=== PATIENT | female | born 1950 | race Caucasian/White ===

== ENCOUNTER → 2020-01-19 10:15 | Outpatient (CLI) | payer MEDICARE, BC, SELFPAY ==
--- NOTE | ~2020-01-19 | DEXA_ITS ---
Bone Density Report Name: Lucila Boland Age: 69 Sex: Female Ethnicity: White Date of : 1950 Indication: postmenopausal osteoporosis; monitoring treatment; parental hip fracture; Referring Provider: WU GELLER Study: Bone densitometry was performed. Exam Date: January 19, 2020 Accession number: [id number] Bone Density: Region BMD T-score Z-score Classification AP Spine (L1-L4) 0.711 -3.1 -0.9 Osteoporosis Femoral Neck (Left) 0.616 -2.1 -0.3 Osteopenia Total Hip (Left) 0.718 -1.8 -0.3 Osteopenia Femoral Neck (Right) 0.656 -1.7 0.1 Osteopenia Total Hip (Right) 0.747 -1.6 -0.1 Osteopenia Total Hip Mean 0.733 -1.7 -0.2 Osteopenia World Health Organization criteria for BMD impression classify patients as: Normal (T-score at or above -1.0), Osteopenia (T-score between -1.0 and -2.5), or Osteoporosis (T-score at or below -2.5). 10-year Fracture Risk: FRAX not reported because: Some T-score for Spine Total or Hip Total or Femoral Neck at or below -2.5 Treated for osteoporosis Previous Exams: Region Exam Age BMD T-score BMD Change BMD Change Date g/cm2 vs Baseline vs Previous AP Spine(L1-L4) 01/19/2020 69 0.711 -3.1 0.014 0.014 11/21/2016 66 0.698 -3.2 Total Hip(Left) 01/19/2020 69 0.718 -1.8 -0.022 -0.022 11/21/2016 66 0.741 -1.7 Total Hip(Right) 01/19/2020 69 0.747 -1.6 -0.019 -0.019 11/21/2016 66 0.766 -1.4 *Denotes significance at 95% confidence level, LSC for AP Spine = 0.022 g/cm2, LSC for Total Hip = 0.027 g/cm2 Clinical Information Provided by Patient: Parent has had a hip fracture Is being treated for osteoporosis Has used the following medications: HRT (i.e. estrogen/hormone therapy), Vitamin D Patient maximum height was 68 Menopause Age: 52 No regular weight bearing exercise Drinks caffeinated beverages Onset of menses at age 12 Number of children 3 Impression: The patient has osteoporosis, based on the Total Spine T-score. The patient has risk factors, including: parental hip fracture. No significant bone loss was observed. Discussion: PATIENT UNDER TREATMENT WITH NO SIGNIFICANT BMD LOSS SINCE LAST EXAM. In an untreated patient, BMD typically declines with age. A lack of decline or gain is usually a sign that treatment is efficacious and fracture risk is reduced. It is important to ask patients whether they are taking their medications and to encoura
--- NOTE | ~2020-01-19 | MM_ITS ---
EXAMINATION: MM screening [facility] BI w emigdio HISTORY: Screening mammogram TECHNIQUE: Craniocaudal and mediolateral oblique 3-D tomosynthesis images were obtained and synthetic 2-D images were generated. CAD analysis was submitted and interpreted. COMPARISON: Comparison to multiple prior studies sequentially, with oldest reviewed study dated 10/2014. BREAST PARENCHYMAL COMPOSITION: There are scattered areas of fibroglandular density. FINDINGS: There is no evidence of suspicious mass, calcification, or architectural distortion to sugg est malignancy in either breast. There has been no suspicious interval change. IMPRESSION: 1. No mammographic evidence of malignancy. 2. Recommend routine screening mammography in one year. BI-RADS Category 1: Negative Reviewed, dictated and finalized at location A.
== END ==
PROVIDERS: PCP Family Medicine; Visit Provider Family Medicine
DX: Z12.31 Encounter for screening mammogram for malignant neoplasm of breast (principal); Z78.0 Asymptomatic menopausal state; M85.89 Other specified disorders of bone density and structure, multiple sites; M81.0 Age-related osteoporosis without current pathological fracture
CPT/HCPCS: 77063; 77067; 77080

== ENCOUNTER → 2020-12-16 09:27 | Outpatient (CLI) | payer MEDICARE, BC, SELFPAY ==
--- NOTE | ~2020-12-16 | XR_ITS ---
EXAMINATION: XR lumbar spine min 4V DATE: 12/16/2020 09:41 INDICATION: Low back pain TECHNIQUE: Anteroposterior, lateral, and bilateral oblique views of the lumbar spine, and cone-down l ateral view of the lumbosacral junction were obtained. COMPARISON: CT, 07/10/2011 FINDINGS: There is no fracture, dislocation, or subluxation. The vertebral body heights are maintaine d. There is mild loss of intervertebral disc space height at L2-3. Small degenerative osteophytes pro ject from the anterior endplates of multiple vertebral bodies. There is mild facet osteoarthritis of the lower lumbar spine. A large volume of colonic stool is present. Cholecystectomy clips are noted i n the right upper quadrant. IMPRESSION: 1. Mild lumbar spondylosis without acute findings or significant interval change. Reviewed, dictated and finalized at location B. IMPRESSION: 1. Mild lumbar spondylosis without acute findings or significant interval mayur higgins
== END ==
PROVIDERS: PCP Family Medicine; Visit Provider Family Medicine
DX: M47.816 Spondylosis without myelopathy or radiculopathy, lumbar region (principal)
CPT/HCPCS: 72110

== ENCOUNTER 2021-03-15 10:45 | Outpatient (RCR) | payer MEDICARE, BC, SELFPAY ==
--- NOTE | 2021-02-22 09:35 | PTOPEVAL ---
PHYSICAL THERAPY EVALUATION AND PLAN OF CARE Thank you for referring Lucila Boland to [facility].? The patient is scheduled to be seen for therapy? follow up in 3 weeks. Please review, sign, date and return this plan of care JESICA. I agree with and certify that the following plan of care is medically necessary. Referring Physician Date Attending Provider: Radha Martinez MD Evaluation Diagnosis bilateral foot numbness Onset September 2020 Subjective Information Lucila is here today with c/o Query Text:As Reported By Patient/ bilateral foot numbness, left Family worse than right. She describes her feet as tingling feeling. 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 Has occasional back pain when standing or bending over too long. Does not as this time alter her lifestyle. Pain Score Pain Score 0: Self Report Cervical and Lumbar ROM Lumbar ROM Lumbar Flexion (0-90) 50 Query Text:Active in Degrees Lumbar Flexion Active Mid Grace Query Text:Hands to: Lumbar Extension (0-40) 15 Query Text:Active in Degrees Lateral Rotation Right (0-45) 40 Query Text:Active in Degrees Lateral Rotation Left (0-45) 40 Query Text:Active in Degrees Lower Extremity Muscle Strength Testing Hip Strength Right Hip Flexion Strength 4 Good Hip Extension Strength 3 Fair Hip Abduction Strength 3+ Fair + Left Hip Flexion Strength 4+ Good + Hip Extension Strength 4- Good - Hip Abduction Strength 4- Good - Knee Strength Bilateral Knee Flexion Strength 4+ Good + Knee Extension Strength 4+ Good + Muscle Length Testing Muscle Length Testing Avinash Test Shortened Muscles Short (R) Rectus Femoris,Short (L) Rectus Femoris Piriformis w/Hip Flexion >90 Degrees (L) Moderate Tightness,(R) Severe Tightness Oh's Test Hip Muscle Length (L) Mild Tightness,(R) Moderate Tightness Left Hamstring Length -40 Query Text:(90 - 90 Position) Right Hamstring Length -50 Query Text:(90 - 90 Position) Palpation Assessment Palpation Palpation very good tissue quality left paraspinals and QL, right paraspinals and QL mild to moderate tightness to palpation Dermatomes General Dermatome Bilateral General Screen All Lumbar Intact Reflexes Reflexes Loc
--- NOTE | 2021-03-15 11:02 | PTOPEVAL ---
PHYSICAL THERAPY DISCHARGE NOTE Thank you for referring Lucila Boland to [facility].? Please review, sign, date and return this plan of care JESICA. I agree with and certify that the following plan of care is medically necessary. Referring Physician Date Attending Provider: Radha Martinez MD Discharge Diagnosis bilateral foot numbness Onset September 2020 Subjective Information States she has been doing her Query Text:As Reported By Patient/ exercises. Reports that she Family sees how they are good for her general health and wellbeing, but they are not changing her main complaint of foot numbness. Pain Score Pain Score 0: Self Report Lower Extremity Muscle Strength Testing Hip Strength Right Hip Flexion Strength 5 Normal Hip Extension Strength 4 Good Hip Abduction Strength 4 Good Left Hip Flexion Strength 5 Normal Hip Extension Strength 4+ Good + Hip Abduction Strength 4+ Good + Knee Strength Bilateral Knee Flexion Strength 5 Normal Knee Extension Strength 5 Normal Muscle Length Testing Muscle Length Testing Piriformis w/Hip Flexion >90 Degrees (R) Moderate Tightness,(L) Moderate Tightness Oh's Test Hip Muscle Length (R) Mild Tightness,(L) Mild Tightness Left Hamstring Length -40 Query Text:(90 - 90 Position) Right Hamstring Length -40 Query Text:(90 - 90 Position) General Exercise General Exercises Side Bilateral Exercise Location LE Exercise Type Active,Resistive,Stretching Exercise Description -supine sciatic nerve glides Query Text:Record Sets, Reps, -sitting hamstring stretch Resistance, and Position [id number] -sitting piriformis stretch [id number] -resisted clamshells green band -resisted side stepping green band -resisted marches green band -unilateral bridge each side Rehab Teaching Rehab Teaching Teaching Topic Rehab Teaching Topic Components Anatomy/Physiology,Diagnosis, Home Program As Pertains To Safety,Technique,Therapy Prognosis Recipient Patient Learning Preferences Demonstration,Discussion Barriers to Learning None Readi
== END 2021-03-16 10:26 | disposition home or self-care (01) ==
LOC: ANHPT 10:45
PROVIDERS: PCP Family Medicine; Visit Provider Family Medicine
DX: M54.16 Radiculopathy, lumbar region (principal)
CPT/HCPCS: 97110; 97161

== ENCOUNTER → 2021-03-22 12:16 | Outpatient (CLI) | payer MEDICARE, BC, SELFPAY ==
--- NOTE | ~2021-03-22 | MM_ITS ---
EXAMINATION: MM screening josh BI w emigdio HISTORY: Screening TECHNIQUE: Craniocaudal and mediolateral oblique 3-D tomosynthesis images were obtained and synthetic 2-D images were generated. CAD analysis was submitted and interpreted. COMPARISON: Comparison to multiple prior studies sequentially, with oldest reviewed study dated 01/15. BREAST PARENCHYMAL COMPOSITION: There are scattered areas of fibroglandular density. FINDINGS: There are developing asymmetries in the central/subareolar location of the left breast. The right breast is stable without evidence for malignancy. IMPRESSION: 1. Developing left breast asymmetries. 2. Additional mammographic views and possible breast ultrasound are recommended. BI-RADS Category 0: Incomplete: Needs additional imaging evaluation. Reviewed, dictated and finalized at location D. IMPRESSION: 1. Developing left breast asymmetries. 2. Additional mammographic views and possible breast ultrasound are recommended . BI-RADS Category 0: Incomplete: Needs additional imaging evaluation.
== END ==
PROVIDERS: PCP Family Medicine; Visit Provider Family Medicine
DX: Z12.31 Encounter for screening mammogram for malignant neoplasm of breast (principal); R92.8 Other abnormal and inconclusive findings on diagnostic imaging of breast
CPT/HCPCS: 77063; 77067

== ENCOUNTER → 2021-04-18 09:06 | Outpatient (CLI) | payer MEDICARE, BC, SELFPAY ==
--- NOTE | ~2021-04-18 | MMUS_ITS ---
EXAMINATION: MM diagnostic josh LT w emigdio, US breast LT complete HISTORY: Follow-up left breast asymmetries TECHNIQUE: Additional 3-D tomosynthesis images of the left breast were performed and synthetic 2-D im ages were generated. CAD analysis was submitted and interpreted. High resolution complete left breast ultrasound was performed. COMPARISON: Comparison to multiple prior studies sequentially, with oldest reviewed study dated 12/2015. BREAST PARENCHYMAL COMPOSITION: Breast composed of scattered areas of fibroglandular density. FINDINGS: MAMMOGRAPHIC FINDINGS: There is a subareolar mass which is unchanged from prior studies measuring approximately 1.6 cm. Ther e is a deeper subareolar mass in the left breast with circumscribed margins measuring approximately 1 .4 cm. There are no suspicious calcifications or architectural distortion. ULTRASOUND: Left breast ultrasound: There is a history of cysts in the subareolar location of the left breast, la rgest measuring approximately 2 cm. At 2:00, 3 cm from the nipple, there is a 1.4 cm cyst. At 11:00, 3 cm from the nipple, there is a complicated cyst measuring 5 mm. At 11:00, 2 cm from the nipple, the re is a slightly irregular shaped hypoechoic mass measuring 5 mm with possible echogenic hilum, possi alicja intramammary lymph node or complicated cysts. IMPRESSION: 1. Probable benign left breast masses at 11:00. 2. Recommend 6 month follow-up left breast ultrasound and mammogram BI-RADS category 3, probably benign findings. Reviewed, dictated and finalized at location A. IMPRESSION: 1. Probable benign left breast masses at 11:00. 2. Recommend 6 month follow-up left breast ultrasound and mammogram BI-RADS category 3, probably benign findings.
== END ==
PROVIDERS: PCP Family Medicine; Visit Provider Family Medicine
DX: N63.22 Unspecified lump in the left breast, upper inner quadrant (principal)
CPT/HCPCS: 76641; 77061; 77065; G0279

== ENCOUNTER 2021-05-02 09:23 | Outpatient (CLI) | payer MEDICARE, BC, SELFPAY ==
--- NOTE | 2021-05-02 12:00 | NEURO_ITS ---
Impression: # Complains of numbness of feet and lower extremities. # Normal nerve conduction study including peroneal and posterior tibial nerves. # No Tarsal Tunnel Syndrome. # Normal needle/EMG exam. # Clinical correlation recommended; Possibility of central involvement cannot be ruled out. Nerve Conduction Studies Anti Sensory Summary Table Stim Site NR Peak (ms) P-T Amp (?V) Site1 Site2 Delta-P (ms) Dist (cm) Quintin (m/s) Left Sup Fibular Anti Sensory (Ant Lat Mall) 14 cm 4.0 24.6 14 cm Ant Lat Mall 4.0 16.0 40 Right Sup Fibular Anti Sensory (Ant Lat Mall) 14 cm 4.0 24.3 14 cm Ant Lat Mall 4.0 16.0 40 Left Sural Anti Sensory (Lat Mall) Calf 3.7 40.2 Calf Lat Mall 3.7 16.0 43 Right Sural Anti Sensory (Lat Mall) Calf 3.7 21.0 Calf Lat Mall 3.7 16.0 43 Motor Summary Table Stim Site NR Onset (ms) O-P Amp (mV) Site1 Site2 Delta-0 (ms) Dist (cm) Quintin (m/s) Left Lateral Plantar Motor (ADM) Med Mall 5.0 1.7 Right Lateral Plantar Motor (ADM) Med Mall 4.9 1.3 Left Peroneal Motor (Vastus Med) Ankle 4.9 2.0 Popit Ankle 9.0 39.0 43 Popit 13.9 1.6 Right Peroneal Motor (Vastus Med) Ankle 4.6 1.6 Popit Ankle 9.2 40.0 43 Popit 13.8 1.1 Left Tibial Motor Run #1 (Abd Grewal Brev) Ankle 4.6 4.3 Knee Ankle 10.6 42.0 40 Knee 15.2 3.0 Right Tibial Motor (Abd Grewal Brev) Ankle 4.8 6.0 Knee Ankle 11.0 44.0 40 Knee 15.8 2.8 F Wave Studies NR F-Lat (ms) L-R F-Lat (ms) Left Peroneal (Mrkrs) (EDB) 54.03 0.23 Right Peroneal (Mrkrs) (EDB) 53.80 0.23 Left Tibial (Mrkrs) (Abd Hallucis) 53.50 0.67 Right Tibial (Mrkrs) (Abd Hallucis) 54.16 0.67 EMG Side Muscle Nerve Root Ins Act Fibs Amp Dur Recrt Comment Right AntTibialis Dp Br Fibular L4-5 Nml Nml Nml Nml Nml Right Gastroc Tibial S1-2 Nml Nml Nml Nml Nml Right Fibularis Long Sup Br Fibular L5-S1 Nml Nml Nml Nml Nml Right Flex Dig Long Tibial L5-S2 Nml Nml Nml Nml Nml Right Ext Dig Brev Dp Br Fibular L5, S1 Nml Nml Nml Nml Nml Left AntTibialis Dp Br Fibular L4-5 Nml Nml Nml Nml Nml Left Gastroc Tibial S1-2 Nml Nml Nml Nml Nml Left Fibularis Long Sup Br Fibular L5-S1 Nml Nml Nml Nml Nml Left Flex Dig Long Tibial L5-S2 Nml Nml Nml Nml Nml Left Ext Dig Brev Dp Br Fibular L5, S1 Nml Nml Nml Nml Nml Right Ext Dig Long Dp Br Fibular L5-S1 Nml Nml Nml Nml Nml Left Ext Dig Long Dp Br Fibular L5-S1 Nml Nml Nml Nml Nml MTDD
== END 2021-05-02 09:24 | disposition home or self-care (01) ==
LOC: ANHNEURO 09:24
PROVIDERS: PCP Family Medicine; Visit Provider Family Medicine
DX: R20.0 Anesthesia of skin (principal); M54.16 Radiculopathy, lumbar region
CPT/HCPCS: 95886; 95911

== ENCOUNTER 2021-06-13 07:35 | Outpatient (CLI) | payer MEDICARE, BC, SELFPAY ==
--- NOTE | ~2021-06-13 | MR_ITS ---
EXAMINATION: MR lumbar spine wo con EXAM DATE: 06/13/2021 09:14 INDICATION: M54.16 - Radiculopathy, lumbar region . Bilateral hip and leg pain. TECHNIQUE: Multi-sequential, multiplanar MR images of the lumbar spine were obtained without contrast . Sagittal T1, T2, T2 fat saturation images. Axial T2 weighted images. There is no prior study for comparison. FINDINGS: Mild diffuse lumbar disc disease. 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 There is 2 mm anterolisthesis L5 on S1. No spondylolysis. There are no suspicious marrow signal abnormalities. Par aspinal soft tissue is unremarkable. The conus medullaris terminates at the T12-L1 level and has nor mal signal intensity and morphology. Level by level evaluation: T12-L1: Disc does not extend beyond the endplate margin. Facet arthropathy: None. Neural foraminal stenosis: No stenosis. Central canal stenosis: No stenosis. L1-L2: There is a mild diffuse disc bulge. Facet arthropathy: Mild. Neural foraminal stenosis: No stenosis. Central canal stenosis: No stenosis. L2-L3: There is a mild to moderate diffuse disc bulge. Facet arthropathy: Mild to moderate. Neural foraminal stenosis: No stenosis. Central canal stenosis: No stenosis. L3-L4: There is a mild diffuse disc bulge. Facet arthropathy: Mild. Neural foraminal stenosis: No stenosis. Central canal stenosis: No stenosis. L4-L5: There is a mild to moderate diffuse disc bulge. Facet arthropathy: Mild to moderate. Neural foraminal stenosis: Minimal left. Central canal stenosis: Mild. L5-S1: There is a mild to moderate diffuse disc bulge. Facet arthropathy: Moderate right, mild left. Neural foraminal stenosis: Minimal. Central canal stenosis: Mild. IMPRESSION: Mild to moderate lumbar spondylosis. Reviewed, dictated and finalized at location A. 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
== END 2021-06-13 07:36 | disposition home or self-care (01) ==
PROVIDERS: PCP Family Medicine; Visit Provider Family Medicine
DX: M47.27 Other spondylosis with radiculopathy, lumbosacral region (principal); M48.07 Spinal stenosis, lumbosacral region; R29.898 Other symptoms and signs involving the musculoskeletal system
CPT/HCPCS: 72148

== ENCOUNTER → 2021-10-16 08:45 | Outpatient (CLI) | payer MEDICARE, BC, SELFPAY ==
--- NOTE | ~2021-10-16 | MMUS_ITS ---
EXAMINATION: MM diagnostic josh LT w emigdio, US breast LT limited HISTORY: Six-month follow-up for probably benign left breast mass TECHNIQUE: Craniocaudal, mediolateral, and mediolateral oblique 3-D tomosynthesis images of the left breast were performed and synthetic 2-D images were generated. CAD analysis was submitted and interpr eted. High resolution limited left breast ultrasound was performed. COMPARISON: 04/18/2021, 03/22/2021, 01/19/2020, 03/06/2018 BREAST PARENCHYMAL COMPOSITION: There are scattered areas of fibroglandular density. FINDINGS: MAMMOGRAPHIC FINDINGS: There is a stable 1.7 cm equal density, circumscribed, subareolar mass of the left breast. No suspici ous calcification or architectural distortion are identified. ULTRASOUND: There is a 1.9 cm cyst in the subareolar aspect of the breast. Smaller adjacent cysts are also noted which measure 9 mm and 4 mm. There is a 1.4 cm cyst at the 2:00 location 3 cm from the nipple. There is a stable 4 mm x 3 mm oval, hypoechoic mass with no posterior features or internal vascularity at t he 11:00 location 5 cm from the nipple. A stable 5 mm x 3 mm mass with similar sonographic features i s present at the 11:00 location 3 cm from the nipple. There is a stable 5 mm x 3 mm hypoechoic mass w ith possible annular margins, no posterior features, and no internal vascularity at the 11:00 locatio n 2 cm from the nipple. IMPRESSION: 1. Probably benign left breast masses. 2. Recommend 6 month follow-up left diagnostic mammogram and ultrasound. BI-RADS category 3, probably benign findings. Reviewed, dictated and finalized at location A. IMPRESSION: 1. Probably benign left breast masses. 2. Recommend 6 month follow-up left diagnostic mammogram and ultrasound. BI-RADS category 3, probably benign findings.
== END ==
PROVIDERS: PCP Family Medicine; Visit Provider Family Medicine
DX: R92.8 Other abnormal and inconclusive findings on diagnostic imaging of breast (principal); N60.02 Solitary cyst of left breast
CPT/HCPCS: 76642; 77061; 77065; G0279

== ENCOUNTER → 2022-05-22 08:33 | Outpatient (CLI) | payer MEDICARE, BC, SELFPAY ==
--- NOTE | ~2022-05-22 | MMUS_ITS ---
EXAMINATION: MM diagnostic josh BI w emigdio, US breast LT limited HISTORY: Follow-up left breast mass TECHNIQUE: Additional 3-D tomosynthesis images of the left breast were performed and synthetic 2-D im ages were generated. CAD analysis was submitted and interpreted. High resolution Limited left breast ultrasound was performed. COMPARISON: Comparison to multiple prior studies sequentially, with oldest reviewed study dated 02/11. BREAST PARENCHYMAL COMPOSITION: Breast composed of scattered areas of fibroglandular density FINDINGS: MAMMOGRAPHIC FINDINGS: The right breast is stable without evidence for malignancy. There is a subareolar mass of the left br east which is not significantly changed from prior examinations. No suspicious calcifications or arch itectural distortion in either breast. ULTRASOUND: Limited left breast ultrasound: There is a cluster of cyst in the subareolar location of the left tamia ast the largest measuring 1.7 cm. At 2:00, 3 cm from the nipple there is a 9 mm cyst which is unchang ed. At 11:00, 2 cm from the nipple there is an oval hypoechoic mass measuring 5 mm without posterior features or internal vascularity, slightly smaller than on prior examination. At 11:00, 3 cm from the nipple, there is a 5 mm cyst, unchanged. IMPRESSION: 1. Stable likely benign left breast masses. 2. Recommend 6 month follow-up diagnostic left mammogram and ultrasound. BI-RADS category 3, probably benign findings. Reviewed, dictated and finalized at location A. IMPRESSION: 1. Stable likely benign left breast masses. 2. Recommend 6 month follow-up diagnostic left mammogram and ultrasound. BI-RADS category 3, probably benign findings.
--- NOTE | ~2022-05-22 | DEXA_ITS ---
Bone Density Report Name: YUNG URIBE Age: 71 Sex: Female Ethnicity: White Date of : 1950 Indication: postmenopausal osteoporosis; monitoring treatment; parental hip fracture; height loss; Referring Provider: Coty Wilson Study: Bone densitometry was performed. Exam Date: May 22, 2022 Accession number: [id number] Bone Density: Region BMD T-score Z-score Classification AP Spine (L1-L4) 0.691 -3.2 -1.0 Osteoporosis Femoral Neck (Left) 0.590 -2.3 -0.4 Osteopenia Total Hip (Left) 0.720 -1.8 -0.2 Osteopenia Femoral Neck (Right) 0.637 -1.9 0.0 Osteopenia Total Hip (Right) 0.738 -1.7 0.0 Osteopenia Total Hip Mean 0.729 -1.8 -0.1 Osteopenia World Health Organization criteria for BMD impression classify patients as: Normal (T-score at or above -1.0), Osteopenia (T-score between -1.0 and -2.5), or Osteoporosis (T-score at or below -2.5). 10-year Fracture Risk: FRAX not reported because: Some T-score for Spine Total or Hip Total or Femoral Neck at or below -2.5 Treated for osteoporosis Previous Exams: Region Exam Age BMD T-score BMD Change BMD Change Date g/cm2 vs Baseline vs Previous AP Spine(L1-L4) 05/22/2022 71 0.691 -3.2 -0.006 -0.020 01/19/2020 69 0.711 -3.1 0.014 0.014 11/21/2016 66 0.698 -3.2 Total Hip(Left) 05/22/2022 71 0.720 -1.8 -0.021 0.002 01/19/2020 69 0.718 -1.8 -0.022 -0.022 11/21/2016 66 0.741 -1.7 Total Hip(Right) 05/22/2022 71 0.738 -1.7 -0.028* -0.009 01/19/2020 69 0.747 -1.6 -0.019 -0.019 11/21/2016 66 0.766 -1.4 *Denotes significance at 95% confidence level, LSC for AP Spine = 0.022 g/cm2, LSC for Total Hip = 0.027 g/cm2 Clinical Information Provided by Patient: Parent has had a hip fracture Is being treated for osteoporosis Has used the following medications: Vitamin D, RX injection 10/10 ?name Patient maximum height was 68 Menopause Age: 52 No regular weight bearing exercise Drinks caffeinated beverages Onset of menses at age 12 Number of children 3 Impression: The patient has osteoporosis, based on the Total Spine T-score. The patient has risk factors, including: parental hip fracture. No significant bone loss was observed. Discussion: PATIENT UNDER TREATMENT WITH NO SIGNIFICANT BMD LOSS SINCE LAST EXAM. In an untreated patient, BMD typically declines with age
== END ==
PROVIDERS: PCP Family Medicine; Visit Provider Physician Assistant
DX: Z78.0 Asymptomatic menopausal state (principal); R92.8 Other abnormal and inconclusive findings on diagnostic imaging of breast; M81.0 Age-related osteoporosis without current pathological fracture; M85.852 Other specified disorders of bone density and structure, left thigh; M85.851 Other specified disorders of bone density and structure, right thigh
CPT/HCPCS: 76642; 77062; 77066; 77080; G0279

== ENCOUNTER 2023-03-11 10:08 | Emergency (ER) | payer MEDICARE, BC, SELFPAY ==
--- NOTE | ~2023-03-11 | XR_ITS ---
EXAMINATION: XR knee LT 3V DATE: 03/11/2023 10:50 INDICATION: Left knee pain. Fall. TECHNIQUE: 3 views of left knee were obtained. COMPARISON: None. FINDINGS: There is a comminuted fracture of lateral tibial plateau with up to 2 mm depression of the articular surface. There is mild tricompartmental osteoarthritis. There is a large knee joint effusio n. IMPRESSION: 1. Split depression fracture of lateral tibial plateau. 2. Mild knee joint osteoarthritis. 3. Large knee joint effusion. Reviewed, dictated and finalized at location A.
--- NOTE | ~2023-03-11 | XR_ITS ---
EXAMINATION: XR tibia fibula LT 2V DATE: 03/11/2023 10:50 INDICATION: Left knee pain. Fall. TECHNIQUE: 2 views of left tibia and fibula on 3 radiographs were obtained. COMPARISON: None. FINDINGS: There is a split depression fracture of lateral tibial plateau. There is chronic heterotopi c ossification distal to lateral malleolus from old injury. The ankle joint space is normal. IMPRESSION: 1. Split depression fracture of lateral tibial plateau. Reviewed, dictated and finalized at location A.
--- NOTE | 2023-03-11 10:21 | ED.LOWEXIN ---
HPI - Extremity Injury (Lower) General Chief Complaint: Extremity Injury, Lower Stated Complaint: Injured Foot Time Seen by Provider: 03/11/23 10:21 Source: patient, RN notes reviewed and old records reviewed Mode of arrival: ambulatory Limitations: no limitations History of Present Illness HPI Narrative: 72 year old female presents to the [facility] with complaints of left knee pain. Patient states that she was walking downstairs, missed a stair to star knee and fell directly onto the lateral aspect of the left knee. Unable to bear weight. Significant swelling noted. Unable to completely straighten the knee. Patient denies hitting head. No loss of consciousness. Denies back or neck pain. Occurred just prior to arrival No treatment prior to arrival Onset (ago): hour(s) Related Data Home Medications Medication Instructions Recorded Confirmed vit C 250 mg-vit E 90 mg-zinc 40 1 tablet PO DAILY 11/17/21 03/11/23 mg-copper 1 [id number] capsule (PreserVision AREDS-2) Allergies Allergy/AdvReac Type Severity Reaction Status Date / Time benazepril Allergy Unknown cough Verified 11/27/22 10:49 amitriptyline AdvReac Contraindicated/ Verified 11/27/22 10:49 arrhythmia propranolol AdvReac sleep Verified 11/27/22 10:49 disruption/ horrible dreams Review of Systems Review of Systems: All systems reviewed & are unremarkable except as noted in HPI and below Constitutional: Constitutional: Reports no additional constitutional complaints Eyes: Eyes: Reports no additional eye complaints ENT: Reports system reviewed and no additional complaints, except as documented Cardiovascular: Cardiovascular: Reports no additional cardiovascular complaints, Denies chest pain and Denies dyspnea Respiratory: Respiratory: Reports no additional respiratory complaints, Denies chest congestion, Denies cough and Denies dyspnea Gastrointestinal: Gastrointestinal: Reports no additional gastrointestinal complaints, Denies abdominal pain, Denies nausea and Denies vomiting Musculoskeletal: Musculoskeletal: Reports as per HPI, Reports arthralgias (Left knee) and Reports joint swelling (Left knee) Integumentary/Breasts: Skin/Breast: Reports system reviewed and no additional complaints, except as docu Neurologic: Reports system reviewed and no additional complaints, except as documented Psychiatric: Psychiatric: Reports no additional psychiatric complaints Allergic/Immunologic: Allergic/Immunologic: Reports no additional allergic/immunologic complaints [facility] Past Medical History Medical History (Updated 03/11/23 @ 11:16 by Katty Ellis APRN) Hemorrhoids Trochanteric bursitis, unspecified hip Family History Family History Sibling Family history of cardiovascular disease Father Acute myocardial infarction Grandparent Cerebrovascular accident Mother Cerebrovascular accident Social History Social History Smoking status: Never smoker Alcohol intake: current Substance use: never Substance use type: does not use Lack of Transportation: No Lack of Food: Never True Current Housing: I Have Housing Concerned About Future Housing: No Difficulty Paying Gas/Electric Bills: No Difficulty Paying for Meds: No Currently Unemployed: No Education: Associate Degree Difficulty w/ Childcare or Family Care: No Spiritual care concerns: No Comments At the time of my signature, I reviewed and agree with the nursing past medical, surgical, social, and family history. There is no relevant family history pertinent to the patient complaint. Exam Const: General: cooperative, healthy appearing, comfortable, no acute distress, well developed, alert and well nourished Nutritional Appearance: well nourished Orientation/consciousness: patient oriented x3 Limitations: no limitations HENMT:
[2023-03-11 10:24] VITALS: BP 128/71; PULSE 70; RESP 16; TEMP 36.6; O2SAT 98
== END 2023-03-11 12:05 | disposition home or self-care (01) ==
PROVIDERS: Emergency Provider Nurse Practitioner; PCP Family Medicine
DX: S82.142A Displaced bicondylar fracture of left tibia, initial encounter for closed fracture (principal); W10.9XXA Fall (on) (from) unspecified stairs and steps, initial encounter
CPT/HCPCS: 73562; 73590; 99214; G0463; L1830

== ENCOUNTER 2023-06-17 11:00 | Outpatient (RCR) | payer MEDICARE, BC, SELFPAY ==
--- NOTE | 2023-04-22 16:40 | OPREHPOC ---
Outpatient Therapy Plan of Care This is a Multidisciplinary Plan of Care that may contain components documented by all disciplines (PT, OT, and ST.) PT Problem 1 PT Problem #1 Knowledge Deficit PT Goal 1 Goal Pt to be IND with issued HEP Target Visit 16 PT Problem 2 PT Problem #2 Pain PT Goal 1 Goal Pt to report knee pain no greater than 3/10 in the last week Target Visit 16 PT Goal 2 Goal Pt to report 75% improvement in overall symptoms Target Visit 16 PT Problem 3 PT Problem #3 Impaired Range of Motion PT Goal 1 Goal Pt to increase active knee flexion to 120 deg Target Visit 16 PT Goal 2 Goal Pt to increase knee extension ROM to 0 deg Target Visit 16 PT Problem 4 PT Problem #4 Impaired Strength PT Goal 1 Goal Pt to improve L quad strength to 4+/5 Target Visit 16 PT Goal 2 Goal Pt to improve L hip strength to 4/5 Target Visit 16 PT Problem 5 PT Problem #5 Impaired Gait PT Goal 1 Goal Pt to ambulate on level surface without substitutions when WB status allows Target Visit 16
--- NOTE | 2023-04-22 16:40 | PTOPEVAL1 ---
Assessment and note entered by Truman Lucero, PT, DPT Evaluation Information Assessment Status Evaluation Diagnosis L tibial plateau fx Onset 03/16 Subjective Information Pt states she fell on 03/16 and caused a fracture, on 03/26 this was surgically repaired and she has been non weight bearing since. She has to remain TTWB until her follow up appointment on 05/17. She has been a walker to get around her home. Pt like to cook, knit, and work around her home. Reported Pain Level Pain Score 0: Self Report Assessment PT Clinical Summary Lucila presents to therapy today for her initial evaluation following a L knee tibial plateau fracture on 03/16. She is currently TTWB. Today she demonstrates decreased active knee ROM, flexion is limited to 95 deg and extension to -18 deg. She demonstrates quad atrophy and weakness of her L hip globally. Skilled therapy services are indicated to improve ROM, strength, gait train when able, and to progress towards a return to baseline function. Plan of Care Interventions Electrical Stimulation,Gait Training,Hot Pack/Cold Pack,Manual Therapy,Neuro Re-education,Patient/ Caregiver Educati,Therapeutic Activities, Therapeutic Exercise PT Services Indicated Yes Treatment Frequency and 2x/wk for 16 visits Duration These treatments will address the objective and functional deficits as defined above. The patient will be advanced safely and appropriately in order for the patient to progress towards his/her prior level of function. Additional exercises will be introduced and as well as a comprehensive home exercise program upon discharge, if needed, ?to ensure carryover of functional gains achieved in the clinic. This treatment plan has been reviewed and agreement upon by the patient.
--- NOTE | 2023-05-21 13:48 | PTOPPROG ---
Assessment and note entered by Truman Lucero, PT, DPT Evaluation Information Assessment Status Progress Diagnosis L tibial plateau fx Onset 03/16 Subjective Information Pt states overall she is doing well. She has progressed in the last week to WBAT and has been ambulating with a standard walker. She inquired about stairs and ambulation with a wheeled walker. Assessment PT Clinical Summary Lucila presents to therapy today for her progress report following a L knee tibial plateau fracture on 03/16. Pts active ROM is currently -8 deg to 118 deg, and she demonstrates improved quad strength. She has just began gait training with a wheeled walker. She continues to have decreased ambulation and stair navigation ability, strength, and functional mobility compared to her baseline. Continuation of skilled therapy services are indicated to improve ROM, strength, gait training, and to return to PLOF. Plan of Care Interventions Electrical Stimulation,Gait Training,Hot Pack/Cold Pack,Manual Therapy,Neuro Re-education,Patient/ Caregiver Educati,Therapeutic Activities, Therapeutic Exercise PT Services Indicated Yes Treatment Frequency and 2x/wk for 8 visits Duration These treatments will address the objective and functional deficits as defined above. The patient will be advanced safely and appropriately in order for the patient to progress towards his/her prior level of function. Additional exercises will be introduced and as well as a comprehensive home exercise program upon discharge, if needed, ?to ensure carryover of functional gains achieved in the clinic. This treatment plan has been reviewed and agreement upon by the patient.
--- NOTE | 2023-06-17 13:32 | PTOPDC ---
Assessment and note entered by Truman Lucero, PT, DPT Evaluation Information Assessment Status Discharge Diagnosis L tibial plateau fx Onset 03/16 Subjective Information Pt states her knee is a little stiff most days, but she is not having any pain. She states she feels like the distance she can walk still limited . Pt states last week she walked around the grocery store and thinks she overdid it. Reported Pain Level Pain Score 0: Self Report Assessment PT Clinical Summary Lucila presents to therapy today for her progress report following 17 visits of skilled therapy to treat the deficits of a L knee tibial plateau fracture on 03/16. Pts active ROM is currently -5 deg to 125 deg. She is currently ambulating household distances without an AD and community distances with a cane. She has met all of her therapy goals and this time and will be discharged . Plan of Care PT Services Indicated No
== END 2023-06-17 14:51 | disposition home or self-care (01) ==
LOC: ANHGOSHPT 11:00
PROVIDERS: PCP Family Medicine
DX: S82.142D Displaced bicondylar fracture of left tibia, subsequent encounter for closed fracture with routine healing (principal)
CPT/HCPCS: 97014; 97110; 97116; 97140; 97161; 97530; 97750; G0283

== ENCOUNTER 2023-10-21 09:46 | Outpatient (CLI) | payer MEDICARE, BC, SELFPAY ==
--- NOTE | ~2023-10-21 | CT_ITS ---
Noncontrast CT scan of the lumbar spine CLINICAL HISTORY: Inflammatory spondyloarthropathy TECHNIQUE: Axial noncontrast imaging of the lumbar spine was performed. Sagittal and coronal reformat sienna images were constructed. Dose reduction technique was used on this scan by utilizing automated ex posure control and iterative reconstruction technique. The dose-length product (DLP) was 605.71 mGy-c m. FINDINGS: There is no fracture or subluxation of the lumbar spine. Vertebral bodies maintain normal h eight and alignment. Intraosseous hemangioma of L3 noted. Intervertebral disc spaces are relatively w ell preserved throughout the lumbar spine. At L1-L2, there is minimal disc bulge. No spinal canal stenosis or definite neural foraminal narrowin g. At L2-L3, there is mild disc bulge. No spinal canal stenosis. There is mild left neural foraminal regine rowing. Right neural foramen preserved. At L3-L4, there is disc bulge and mild facet arthropathy. No alek central canal stenosis. Neural for kassie are preserved. At L4-L5, there is mild disc bulge with mild facet arthropathy. No alek central canal stenosis. Ther e is mild left neural foraminal narrowing. Right neural foramen preserved. At L5-S1, there is no disc bulge or herniation. No spinal canal stenosis or neural foraminal narrowin g. Paravertebral soft tissues are unremarkable. Impression: Mild degenerative spondylosis, as above. Reviewed, dictated and finalized at [facility]. Impression: Mild degenerative spondylosis, as above.
== END 2023-10-21 09:47 ==
PROVIDERS: PCP Family Medicine; Visit Provider Family Medicine
DX: M46.86 Other specified inflammatory spondylopathies, lumbar region (principal); M47.896 Other spondylosis, lumbar region
CPT/HCPCS: 72131

== ENCOUNTER 2023-11-18 09:25 | Outpatient (CLI) | payer MEDICARE, BC, SELFPAY ==
--- NOTE | ~2023-11-18 | MR_ITS ---
EXAMINATION: MR lumbar spine wo con DATE: 11/18/2023 09:58 INDICATION: Lumbar stenosis. Low back pain. TECHNIQUE: Magnetic resonance imaging (MRI) of the lumbar spine was performed without intravenous con trast. COMPARISON: Lumbar spine MRI 06/13/2021 FINDINGS: Bone alignment is normal. Vertebral body heights are normal. There is mildly decreased disc height at L2-L3. The distal spinal cord signal intensity is normal. The conus medullaris is at T12-L 1. The following disc levels are specifically discussed: L1-L2: The disc is bulging. There is mild bilateral facet joint osteoarthritis. There is mild bilater al neural foraminal stenosis. There is mild central canal stenosis. L2-L3: The disc is bulging is an annular fissure. There is mild bilateral facet joint osteoarthritis. There is mild bilateral neural foraminal stenosis. There is mild central canal stenosis. L3-L4: The disc is bulging. There is moderate bilateral facet joint osteoarthritis. There is mild truong ateral neural foraminal stenosis. There is mild central canal stenosis. L4-L5: The disc is bulging and has an annular fissure. There is severe bilateral facet joint osteoart hritis. There is mild bilateral neural foraminal stenosis. There is mild central canal stenosis. L5-S1: The disc is bulging. There is severe bilateral facet joint osteoarthritis. There is mild bilat eral neural foraminal stenosis. There is no central canal stenosis. IMPRESSION: 1. Mild lumbar spondylosis, stable from 06/13/2021. Reviewed, dictated and finalized at location A.
== END 2023-11-18 09:26 ==
PROVIDERS: PCP Family Medicine
DX: M48.062 Spinal stenosis, lumbar region with neurogenic claudication (principal); M47.896 Other spondylosis, lumbar region
CPT/HCPCS: 72148

== ENCOUNTER 2023-12-18 13:57 | Outpatient (CLI) | payer MEDICARE, BC, SELFPAY ==
--- NOTE | ~2023-12-18 | US_ITS ---
US arterial ankle brachial ind INDICATION: Referral vascular disease TECHNIQUE: Segmental pressures and plethysmographic and Doppler waveforms of the brachial and lower e xtremity arteries were obtained. COMPARISON: None. FINDINGS: Right and left brachial artery pressures of 128 mm Hg and 130 mm Hg, respectively, are concordant (no rmal difference <= 30 mmHg). The right ankle-brachial index (YU) is 1.12 (normal >= 0.9-1.0). The right great toe-brachial index (TBI) is 0.62 (normal >= 0.60). The left YU is 1.2. The left TBI is 0.71. IMPRESSION: 1. Normal bilateral ankle-brachial indices. Reviewed, dictated and finalized at location B.
== END 2023-12-18 13:58 | disposition home or self-care (01) ==
LOC: ANHIMG 13:57
PROVIDERS: PCP Family Medicine; Visit Provider Family Medicine
DX: I73.9 Peripheral vascular disease, unspecified (principal); M79.604 Pain in right leg; M79.605 Pain in left leg
CPT/HCPCS: 93922

== ENCOUNTER 2024-07-28 13:44 | Outpatient (CLI) | payer MEDICARE, BC, SELFPAY ==
--- NOTE | ~2024-07-28 | DEXA_ITS ---
Bone Density Report Name: YUNG URIBE Age: 74 Sex: Female Ethnicity: White Date of : 1950 Indication: postmenopausal; screening for osteoporosis; parental hip fracture; Referring Provider: WU GELLER Study: Bone densitometry was performed. Exam Date: July 28, 2024 Accession number: [id number] Bone Density: Region BMD T-score Z-score Classification AP Spine(L1-L4) 0.718 -3.0 -0.6 Osteoporosis Femoral Neck (Left) 0.595 -2.3 -0.2 Osteopenia Total Hip (Left) 0.733 -1.7 0.1 Osteopenia Femoral Neck (Right) 0.640 -1.9 0.2 Osteopenia Total Hip (Right) 0.769 -1.4 0.4 Osteopenia Femoral Neck Mean 0.617 -2.1 0.0 Osteopenia Total Hip Mean 0.751 -1.6 0.2 Osteopenia World Health Organization criteria for BMD impression classify patients as: Normal (T-score at or above -1.0), Osteopenia (T-score between -1.0 and -2.5), or Osteoporosis (T-score at or below -2.5). 10-year Fracture Risk: FRAX not reported because: Some T-score for Spine Total or Hip Total or Femoral Neck at or below -2.5 Treated for osteoporosis Clinical Information Provided by Patient: Parent has had a hip fracture Is being treated for osteoporosis Has used the following medications: Reclast (i.e. zoledronate), Vitamin D Patient maximum height was 68 Menopause Age: 52 No regular weight bearing exercise Drinks caffeinated beverages Onset of menses at age 12 Number of children 0 Impression: The patient has osteoporosis, based on the Total Spine T-score. The patient has risk factors, including: parental hip fracture. Discussion: It is important to ask patients whether they are taking their medications and to encourage continued and appropriate compliance with their osteoporosis therapies to reduce fracture risk. It is also important to review their risk factors and encourage appropriate calcium and vitamin D intakes, exercise, fall prevention and other lifestyle measures. Follow-Up: Consider a repeat BMD and Vertebral Fracture Assessment (VFA) exam in 2 years or sooner if medically necessary, to reassess this patient's status. Reported by: MELY on 07/29/2024 7:06:00 AM. Reviewed, dictated and finalized at location A.
== END 2024-07-28 13:45 | disposition home or self-care (01) ==
LOC: CHSIMG 13:46
PROVIDERS: PCP Family Medicine; Visit Provider Family Medicine
DX: Z78.0 Asymptomatic menopausal state (principal); M85.89 Other specified disorders of bone density and structure, multiple sites; M81.0 Age-related osteoporosis without current pathological fracture
CPT/HCPCS: 77080

== ENCOUNTER 2024-08-17 08:46 | Outpatient (CLI) | payer MEDICARE, BC, SELFPAY ==
--- NOTE | ~2024-08-17 | XR_ITS ---
EXAMINATION: XR chest 2V 08/17/2024 09:00 INDICATION: Abnormal weight loss PROCEDURE: 2 view chest COMPARISON: 12/07/2015 FINDINGS: The lungs are clear. The cardiomediastinal silhouette is within normal limits. There are no pleural effusions. There is no pneumothorax suspected. IMPRESSION: 1: NO ACUTE CARDIOPULMONARY DISEASE. Reviewed, dictated and finalized at location A. 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
== END 2024-08-17 08:47 | disposition home or self-care (01) ==
LOC: MICIMG 08:48
PROVIDERS: PCP Family Medicine; Visit Provider Family Medicine
DX: R53.83 Other fatigue (principal); E78.2 Mixed hyperlipidemia
CPT/HCPCS: 71046

== ENCOUNTER 2025-07-01 13:01 | Outpatient (CLI) | payer MEDICARE, BC, SELFPAY ==
--- NOTE | ~2025-07-01 | MM_ITS ---
EXAMINATION: MM screening josh BI w emigdio HISTORY: Screening. TECHNIQUE: Craniocaudal and mediolateral oblique 3-D tomosynthesis images were obtained and synthetic 2-D images were generated. CAD analysis was submitted and interpreted. COMPARISON: 2022, 2021, and 2020. BREAST PARENCHYMAL COMPOSITION: Dense: The breasts are heterogeneously dense FINDINGS: No suspicious masses are seen. There are no suspicious calcifications. No unexplained architectural distortion is seen. There are no skin or nipple abnormalities identified. There is no adenopathy seen on the images submitted. IMPRESSION: No mammographic evidence to suggest malignancy is seen. The patient may return to screening mammography as per ACR guidelines. BI-RADS 1 - Negative. Reviewed, dictated and finalized at location C. OFF MAN
== END 2025-07-01 13:02 | disposition home or self-care (01) ==
LOC: MICIMG 13:02
PROVIDERS: PCP Family Medicine; Visit Provider Family Medicine
DX: Z12.31 Encounter for screening mammogram for malignant neoplasm of breast (principal)
CPT/HCPCS: 77063; 77067